=== PATIENT | male | born 1990 | race African-American/Black ===

== ENCOUNTER 2017-01-13 20:41 | Emergency (ER) | payer OTHER ==
[2017-01-13 21:17] LABS: BASOPHIL % 0.3 % (0-2); PLATELET COUNT 278 x10^3mcL (130-400)
[2017-01-13 21:18] LABS: RED CELL DISTRIBUTION WIDTH 14.9 % (11.5-14.5)
[2017-01-13 21:30] LABS: CALCIUM 8.8 mg/dL (8.5-10.1); CARBON DIOXIDE 28.4 mmol/L (21-32); CHLORIDE SERUM 103 mmol/L (98-107); CREATININE SERUM 0.9 mg/dL (0.7-1.3); GFR1 > 60 mL/min; GLUCOSE SERUM 107 mg/dL (74-106); POTASSIUM SERUM 3.9 mmol/L (3.5-5.1); SODIUM SERUM 141 mmol/L (136-145)
[2017-01-13 21:34] LABS: ALBUMIN 3.8 g/dL (3.4-5.0); ALKALINE PHOSPHATASE 55 U/L (46-116); ALT/SGPT 39 U/L (16-63); AST/SGOT 39 U/L (15-37); BILIRUBIN TOTAL 0.54 mg/dL (0.20-1.00); TOTAL PROTEIN, SERUM 7.7 g/dL (6.4-8.2)
[2017-01-13 21:38] LABS: CHOLESTEROL 114 mg/dL (<200)
[2017-01-13 22:17] LABS: AMPHETAMINE QUAL UR NONE DETECTED (NEG <=1000)
[2017-01-13 22:42] VITALS: BP 125/79
== END 2017-01-13 22:42 | disposition left against medical advice (07) ==
LOC: ED 20:41
PROVIDERS: Specialist
DX: S00.83XA Contusion of other part of head, initial encounter (principal); R41.82 Altered mental status, unspecified
CPT/HCPCS: 36415; 83880; G0480